=== PATIENT | male | born 1970 | race Caucasian/White ===

== ENCOUNTER 2018-04-30 09:28 | Emergency (ER) | payer OTHER, MEDICAID, SELFPAY ==
[2018-04-30 09:40] VITALS: BP 138/90; PULSE 90; RESP 18; TEMP 36.7; O2SAT 96; BMI 25.0
--- NOTE | 2018-04-30 09:50 | ED_ITS ---
HPI - URI/Sore Throat General Chief Complaint: Upper Respiratory Symptoms Stated Complaint: headache, hurts to swallow Time Seen by Provider: 04/30/18 09:39 Source: patient Mode of arrival: ambulatory Limitations: no limitations History of Present Illness HPI Narrative: Patient is a 47-year-old male here for evaluation of right upper mouth pain, right hoahaoism pain, right-sided headache, right-sided neck pain. Patient states that he thinks he may have an infected tooth causing a sinus infection. He also states that he ?jab ?a toothpick in the front of his upper gum at some point over the past couple days. Patient states that he has not been to the dentist to have this evaluated. Denies any cough. Denies any fevers. Took an aspirin last night for the pain and states that it did not help. No neck pain. Related Data Home Medications Medication Instructions Recorded Confirmed ibuprofen 600 mg PO TID #0 12/30/16 04/30/18 Previous Rx's Medication Instructions Recorded clindamycin HCl 300 mg PO QID 10 Days #40 cap 04/30/18 hydrocodone-acetaminophen 1 tab PO Q6H PRN #6 tab 04/30/18 Allergies Allergy/AdvReac Type Severity Reaction Status Date / Time Penicillins Allergy Mild HEAD Verified 04/30/18 09:37 ITCH-FEELS LIKE LICE vancomycin Allergy Mild ITCH Unverified 01/25/18 13:08 adhesive Allergy Unknown PAPER [place] Unverified 01/25/18 13:08 morphine AdvReac Mild DREAMS, Unverified 01/25/18 13:08 COMBATIVE Review of Systems Constitutional Denies fatigue, Denies fever(s) and Reports headache(s) (Right-sided) Eyes Denies blurry vision, Denies change in vision, Denies diplopia, Denies eye discharge, Denies dry eyes and Denies itchy eyes ENT Ears, Nose, Mouth, and Throat: Denies dysphagia, Denies vertigo, Denies dizziness, Denies ear discharge, Reports facial pain (Right-sided), Reports headache(s) (Right-sided), Denies hearing loss, Denies hoarseness, Denies nasal congestion, Denies nasal trauma, Denies tinnitus, Reports sinus pain (Right- sided), Reports sinus pressure (Right-sided), Reports sore throat and Denies tongue swelling Cardiovascular Denies chest pain, Denies syncope and Denies dyspnea Respiratory Denies cough and Denies dyspnea Gastrointestinal Gastrointestinal: Denies dysphagia, Denies nausea and Denies vomiting Integumentary/Breasts Denies lesions and Denies rash Neurologic Denies confusion, Denies vertigo, Denies dizziness, Denies syncope and Reports headache(s) (Right-sided) Psychiatric Denies confusion Endocrine Denies fatigue Hematologic/Lymphatic Denies easy bleeding and Denies easy bruising Allergic/Immunologic Denies itchy eyes and Denies tongue swelling [facility] Social History Smoking Status: Current every day smoker Exam Initial Vital Signs Initial Vital Signs: Vital Signs Temperature 98.1 F 04/30/18 09:40 Pulse Rate 90 04/30/18 09:40 Respiratory Rate 18 04/30/18 09:40 Blood Pressure 138/90 H 04/30/18 09:40 Pulse Oximetry 96 04/30/18 09:40 Const General: cooperative, well developed, well groomed and No acute distress Orientation: alert, awake and oriented x3 HENMT Head: normal to inspection, normocephalic and atraumatic Ears: hearing grossly normal bilaterally and TM's normal bilaterally (Right TM bulgingLeft TM unremarkable) Nose: external nose normal, nares normal, nasal mucous membranes and turbinates normal and septum normal Face and sinus: sinuses tender (Right-sided frontal maxillary sinus tenderness to palpation), face symmetric and no ecchymosis Mouth: oral mucosae normal, tongue normal, oropharynx normal and moist mucous membranes Teeth and gingiva: other (Patient with a cracked tooth 15. With a filling in place multiple fillings in place on the bottom left lower patient with missing tooth 31) Throat: uvula midline, no postnasal drainage, uvula not displaced and no uvular edema Eyes Pupils: PERRL Neck Lymphatic: lymphadenopathy (Right anterior cervical and submandibular) Resp Effort & Inspection: normal respiratory effort Skin Lesions: no lesions Rashes: no rashes Neuro General: alert, awake and oriented x3 Cognition: normal cognition Speech: speech normal Extrem General: normal to inspection and capillary refill normal Psych Appearance: grossly normal and well kempt Course Orders Ordered: Discontinued Medications Hydrocodone Bitart/Acetaminophen ([place] 5/325) 1 tab PO NOW ONE Stop: 04/30/18 09:51 Vital Signs - 8 hr 04/30/18 09:40 Temperature 98.1 F Pulse Rate 90 Respiratory Rate 18 Blood Pressure 138/90 H Pulse Oximetry 96 MDM - URI/Sore Throat MDM Narrative Medical decision making narrative: Patient with right-sided facial pain with right-sided lymphadenopathy. Differential diagnosis includes dental abscess however none is seen on exam today. Exam could also be consistent with pharyngitis. Patient does not have any exudate but does have right-sided lymphadenopathy. Symptoms could also be consistent with sinusitis, viral illness. His headache is not consistent with meningitis. Not consistent with subarachnoid hemorrhage as it was gradual onset. Had a discussion with the patient regarding his symptoms. Given the uncertain etiology which could include a dental abscess which is not visualized will start the patient on antibiotics. He is allergic to penicillin. Also treat his headache. Patient was instructed that he needed to call his dentist tomorrow for a follow-up. He was given return precautions. He expressed understanding and agreement with plan. Discharge Plan Departure Patient Disposition: Home, Self-Care Clinical Impression: Headache, Otitis media, Lymphadenopathy, Pain, dental Instructions: DI for Headache, DI for Dental Pain Activity Restrictions/Additional Instructions: Take the antibiotics as directed. Would highly recommend that you contact dentist tomorrow to have a follow-up to get further evaluation. Return to the emergency department for any new or worsening symptoms Prescriptions: New clindamycin HCl 300 mg capsule 300 mg PO QID 10 Days Qty: 40 RF: 0 hydrocodone-acetaminophen 5-325 mg tablet 1 tab PO Q6H PRN (Reason: pain) Qty: 6 RF: 0 No Action ibuprofen 600 MG tablet 600 mg PO TID Qty: 0 RF: 0
[2018-04-30] MEDS: HYDROCODONE/ACET 5/325 TABLET 1 TAB PO (10:01)
[2018-04-30 10:16] VITALS: BP 142/93; PULSE 88; RESP 15; O2SAT 99
== END 2018-04-30 10:18 | disposition home or self-care (01) ==
PROVIDERS: Emergency Provider Emergency Medicine; Family Provider Family Medicine; PCP Family Medicine
DX: H66.90 Otitis media, unspecified, unspecified ear (principal); K08.89 Other specified disorders of teeth and supporting structures; R59.1 Generalized enlarged lymph nodes; R51 Headache
CPT/HCPCS: 99283

== ENCOUNTER 2018-06-02 18:17 | Emergency (ER) | payer OTHER, MEDICAID, SELFPAY ==
[2018-06-02 18:36] VITALS: BP 142/93; PULSE 82; RESP 16; TEMP 36.8; O2SAT 100; BMI 26.4
--- NOTE | 2018-06-02 18:36 | ED.DENTAL ---
HPI - Dental/Oral <ANTIONETTE Tracy - Last Filed: 06/02/18 22:26> General Chief complaint: Dental/Oral Stated complaint: UNABLE TO EAT WELL SWELLING OF GLANDS TOOTH ACHE Time Seen by Provider: 06/02/18 18:29 History of Present Illness HPI Narrative: 47-year-old male here for complaint of pain into his right lower molars over the past month. He reports that he was seen 1 month ago and was placed on clindamycin. He states that the pain got better after the clindamycin however in now is back. He reports he does have an appointment with his dentist next week to repair a cracked tooth. He states that increased pain with eating due to chewing. He denies any purulent drainage. No fevers no chills. He denies any other concerns or complaints. He denies any trauma to the teeth. MD Complaint: tooth pain Related Data Home Medications Medication Instructions Recorded Confirmed ibuprofen 600 mg PO TID #0 12/30/16 04/30/18 Previous Rx's Medication Instructions Recorded hydrocodone-acetaminophen 1 tab PO Q6H PRN #6 tab 04/30/18 clindamycin HCl 300 mg PO TID #21 cap 06/02/18 hydrocodone-acetaminophen [[place]] 1 tab PO Q4-6H PRN #10 tab 06/02/18 Allergies Allergy/AdvReac Type Severity Reaction Status Date / Time Penicillins Allergy Mild HEAD Verified 04/30/18 09:37 ITCH-FEELS LIKE LICE vancomycin Allergy Mild ITCH Unverified 01/25/18 13:08 adhesive Allergy Unknown PAPER [place] Unverified 01/25/18 13:08 morphine AdvReac Mild DREAMS, Unverified 01/25/18 13:08 COMBATIVE Review of Systems <ANTIONETTE Tracy - Last Filed: 06/02/18 22:26> Eyes Denies change in vision, Denies eye discharge, Denies irritation and Denies loss of vision ENT Ears, Nose, Mouth, and Throat: Reports mouth pain Cardiovascular Denies chest pain, Denies irregular heart rhythm, Denies lightheadedness, Denies palpitations, Denies dyspnea, Denies dyspnea on exertion and Denies orthopnea Respiratory Denies cough, Denies dyspnea, Denies dyspnea on exertion and Denies wheezing Gastrointestinal Gastrointestinal: Denies abdominal pain, Denies change in bowel habits, Denies diarrhea, Denies nausea and Denies vomiting Genitourinary Denies hematuria, Denies flank pain, Denies urinary incontinence and Denies urinary urgency Musculoskeletal Denies back pain, Denies muscle weakness, Denies numbness and Denies tingling Integumentary/Breasts Denies pruritus, Denies erythema, Denies rash and Denies wounds Neurologic Denies confusion, Denies loss of vision, Denies numbness and Denies tingling Psychiatric Denies anxiety, Denies confusion, Denies depression, Denies homicidal ideation and Denies suicidal ideation Endocrine Denies palpitations Hematologic/Lymphatic Denies easy bruising Allergic/Immunologic Denies wheezing Exam <ANTIONETTE Tracy - Last Filed: 06/02/18 22:26> Initial Vital Signs Initial Vital Signs: Vital Signs Temperature 98.2 F 06/02/18 18:36 Pulse Rate 82 06/02/18 18:36 Respiratory Rate 16 06/02/18 18:36 Blood Pressure 142/93 H 06/02/18 18:36 Pulse Oximetry 100 06/02/18 18:36 Const General: cooperative and well developed Nutritional Appearance: well nourished Orientation: alert, awake, oriented x3 and not confused HENMT Ears: external ears normal and TM's normal bilaterally Nose: external nose normal and No nasal discharge Face and sinus: sinuses nontender, face symmetric, no sinus tenderness and No dry mucous membranes Mouth: oral mucosae normal and moist mucous membranes Teeth and gingiva: caries and other (Tenderness to the gums along side molars 29 and 30 no fluctuance no induration) Throat: tonsils normal and uvula midline Eyes Conjunctivae: conjunctivae normal Sclera: sclerae normal Pupils: PERRL EOM: EOM intact bilaterally Resp Effort & Inspection: normal respiratory effort, able to speak in complete sentences, no respiratory distress and no use of accessory muscles Auscultation: clear to auscultation bilaterally, no rales, no rhonchi and no wheezes Cardio Rate: regular rate Rhythm: regular rhythm Heart Sounds: no click, no gallops, no murmurs and no rubs Neuro General: alert, oriented x3, gait normal and no focal motor deficits Speech: speech normal <Iban Cobian DO - Last Filed: 06/03/18 02:11> Initial Vital Signs Initial Vital Signs: Vital Signs Temperature 98.2 F 06/02/18 18:36 Pulse Rate 82 06/02/18 18:36 Respiratory Rate 16 06/02/18 18:36 Blood Pressure 142/93 H 06/02/18 18:36 Pulse Oximetry 100 06/02/18 18:36 Course <ANTIONETTE Tracy - Last Filed: 06/02/18 22:26> Orders Ordered: Discontinued Medications Hydrocodone Bitart/Acetaminophen ([place] 5/325) 2 tab PO NOW ONE Stop: 06/02/18 19:34 Last Admin: 06/02/18 19:53 Dose: 2 tab Vital Signs - 8 hr 06/02/18 18:36 Temperature 98.2 F Pulse Rate 82 Respiratory Rate 16 Blood Pressure 142/93 H Pulse Oximetry 100 <Iban Cobian DO - Last Filed: 06/03/18 02:11> Orders Ordered: Discontinued Medications Hydrocodone Bitart/Acetaminophen ([place] 5/325) 2 tab PO NOW ONE Stop: 06/02/18 19:34 Last Admin: 06/02/18 19:53 Dose: 2 tab Vital Signs - 8 hr 06/02/18 18:36 Temperature 98.2 F Pulse Rate 82 Respiratory Rate 16 Blood Pressure 142/93 H Pulse Oximetry 100 MDM - Dental/Oral <ANTIONETTE Tracy - Last Filed: 06/02/18 22:26> MDM Narrative Medical decision making narrative: Signs and symptoms presents as return of a dental infection with starting abscess although not palpable at this time he is placed on clindamycin. [id number] Tylenol or Motrin as needed for any discomfort. Small amount of [place] is prescribed for breakthrough pain. Follow up with dentist next week as scheduled. For any worsening symptoms return to the emergency room. Discharge Plan Departure Patient Disposition: Home Clinical Impression: Dental abscess Discharge Date/Time: 06/02/18 20:15 Interventions: ED Discharge Assessment Last Done: 06/02/18 20:14 Instructions: Tooth Abscess Activity Restrictions/Additional Instructions: Signs and symptoms presents as return of dental infection. You are placed on antibiotic called clindamycin use as directed. Use [id number] Tylenol Motrin as needed for any discomfort. Small amount of [place] is prescribed for breakthrough pain use as directed no driving while on the [place]. Follow up with dentist next week as scheduled. For any worsening symptoms return emergency room. Prescriptions: New clindamycin HCl 300 mg capsule 300 mg PO TID Qty: 21 RF: 0 hydrocodone-acetaminophen [[place]] 5-325 mg tablet 1 tab PO Q4-6H PRN (Reason: pain) Qty: 10 RF: 0 No Action ibuprofen 600 MG tablet 600 mg PO TID Qty: 0 RF: 0 hydrocodone-acetaminophen 5-325 mg tablet 1 tab PO Q6H PRN (Reason: pain) Qty: 6 RF: 0 Referrals: Dago Rae MD [Primary Care Provider] - <Iban Cobian DO - Last Filed: 06/03/18 02:11> [facility] ED Attending Amy Attestation: I was available for consultation during this patient's emergency department encounter
[2018-06-02] MEDS: HYDROCODONE/ACET 5/325 TABLET 2 TAB PO (19:53)
== END 2018-06-02 20:15 | disposition home or self-care (01) ==
PROVIDERS: Emergency Provider Nurse Practitioner Family; Family Provider Family Medicine; PCP Family Medicine
DX: K04.7 Periapical abscess without sinus (principal)
CPT/HCPCS: 99282; 99283

== ENCOUNTER 2018-08-28 11:31 | Emergency (ER) | payer OTHER, MEDICAID, SELFPAY ==
[2018-08-28 11:38] VITALS: BP 148/92; PULSE 90; RESP 14; TEMP 36.2; O2SAT 100
--- NOTE | 2018-08-28 12:04 | ED.SKABFB ---
HPI - Skin/Abscess/Foreign Bdy <ETIENNE Damon Last Filed: 08/28/18 18:39> General Chief complaint: Skin/Abscess/Foreign Body Stated complaint: infection on elbow,knee,under arm Time Seen by Provider: 08/28/18 12:03 Source: patient Mode of arrival: ambulatory Limitations: no limitations History of Present Illness HPI narrative: This 47-year-old male comes in due to multiple areas of red skin for over a month. He states that he had a spot 1st on his left hand near the pinky that looks like a little blister or pustule and got red, also 1 on the right knee. He also has 1 on the right elbow that has been scabbed over and a bit red. He states these looked like ingrown hairs. He states that is most concerned about an increasingly red, tender area in the left axilla, also has 1 below the left ear where he can feel a bump. He states the lesions that he had earlier did seem to come to a head and drain some pus. These new lesions have been getting more tender over the last several days and he is concerned that antibiotics are needed. He denies any fever or other new c/o. He denies any exposures or IV drug use. Related Data Home Medications Medication Instructions Recorded Confirmed ibuprofen 600 mg PO TID PRN #0 12/30/16 08/28/18 Previous Rx's Medication Instructions Recorded clindamycin HCl 300 mg PO Q6H 7 Days #28 cap 08/28/18 ibuprofen 800 mg PO Q8H PRN #30 tab 08/28/18 Allergies Allergy/AdvReac Type Severity Reaction Status Date / Time Penicillins Allergy Mild HEAD Verified 08/28/18 11:41 ITCH-FEELS LIKE LICE vancomycin Allergy Mild ITCH Verified 08/28/18 11:41 adhesive Allergy Unknown PAPER [place] Verified 08/28/18 11:41 morphine AdvReac Mild DREAMS, Verified 08/28/18 11:41 COMBATIVE Review of Systems <ETIENNE Damon Last Filed: 08/28/18 18:39> Review of Systems All systems reviewed & are unremarkable except as noted in HPI and below PFSH <ETIENNE Damon Last Filed: 08/28/18 18:39> Comment: + ETOH Exam <ETIENNE Damon Last Filed: 08/28/18 18:39> Narrative Exam Narrative: GENERAL APPEARANCE: Patient sitting comfortably, in no distress (sleeping initially). NECK: Supple, shotty anterior nodes LUNGS: Clear to auscultation bilaterally. HEART: Rate and rhythm regular without murmur, normal S1 and S2, no S3 or S4. DERMATOLOGIC: There is a scabbed area on the right elbow, dry, with mild erythema surrounding. There is a smaller, similar lesion on the left knee. There is a tender, indurated area in the left axilla, no fluctuance, with surrounding, slightly warm erythema that is irregular, to about 4 cm. It does look like there is a tiny pustule near hair follicle of the proximal border of the erythema. There is a tender lateral neck nodule inferior to the left ear Initial Vital Signs Initial Vital Signs: Vital Signs Temperature 97.1 F L 08/28/18 11:38 Pulse Rate 90 08/28/18 11:38 Respiratory Rate 14 08/28/18 11:38 Blood Pressure 148/92 H 08/28/18 11:38 Pulse Oximetry 100 08/28/18 11:38 <Amrit Ng DO - Last Filed: 08/28/18 20:23> Initial Vital Signs Initial Vital Signs: Vital Signs Temperature 97.1 F L 08/28/18 11:38 Pulse Rate 90 08/28/18 11:38 Respiratory Rate 14 08/28/18 11:38 Blood Pressure 148/92 H 08/28/18 11:38 Pulse Oximetry 100 08/28/18 11:38 Course <Hien Ojeda PA-C - Last Filed: 08/28/18 18:39> Vital Signs - 8 hr 08/28/18 13:12 Pulse Rate 70 Respiratory Rate 14 Blood Pressure [Left Arm] 131/72 Pulse Oximetry 99 <Amrit Ng DO - Last Filed: 08/28/18 20:23> Vital Signs - 8 hr 08/28/18 13:12 Pulse Rate 70 Respiratory Rate 14 Blood Pressure [Left Arm] 131/72 Pulse Oximetry 99 Discharge Plan Departure Patient Disposition: Home Clinical Impression: Cellulitis and abscess of trunk Discharge Date/Time: 08/28/18 13:13 Interventions: ED Discharge Assessment Last Done: 08/28/18 13:12 Instructions: DI for Cellulitis -- Adult Activity Restrictions/Additional Instructions: Please return as we talked about if you have acutely worsening symptoms such as increased pain and swelling or rapidly spreading redness, or new fever. It will take about 72 hr for the antibiotic to become fully effective, so please monitor closely. Take the 1st dose as soon as you pick it up, and take it about every 6 hr (you do not need to wake up to take it). Use hot packs to these areas as often as possible as this may help bring the spots to a head or drain (they do not appear to need incision and drainage today). I have sent in a prescription strength ibuprofen for you to take for pain and swelling. I spoke with the military source operations officer at Dr. Rae's office and they do not take [facility] so we were not able to schedule a follow-up appointment for you there. If your insurance has changed from this, please call them regarding an appointment. If not, please call your insurance today and let them know you need to be seen for follow-up in 3-4 days by a local provider who takes your insurance, or you can follow up at walk-in clinic as well. Prescriptions: New clindamycin HCl 300 mg capsule 300 mg PO Q6H 7 Days Qty: 28 RF: 0 ibuprofen 800 mg tablet 800 mg PO Q8H PRN (Reason: pain/inflammation) Qty: 30 RF: 0 No Action ibuprofen 600 MG tablet 600 mg PO TID PRN (Reason: Back Pain) Qty: 0 RF: 0 Referrals: Dago Rae MD [Primary Care Provider] - <Amrit Ng DO - Last Filed: 08/28/18 20:23> [facility] Attending Amy Attestation: I was immediately available in the department for consultation. Documentation has been reviewed. I agree with assessment and plan.
--- NOTE | 2018-08-28 12:19 | PC.NURSE ---
#1: Left axilla w/ redness and pain upon palpation. #2: Right elbow w/ old scab and redness, pain upon palpation. No localized fluctuation. #3: Right knee, redness and pain upon palpation.
[2018-08-28 13:12] VITALS: BP 131/72; PULSE 70; RESP 14; O2SAT 99
== END 2018-08-28 13:13 | disposition home or self-care (01) ==
PROVIDERS: Emergency Provider Internal Medicine; PCP Family Medicine
DX: L03.319 Cellulitis of trunk, unspecified (principal); L02.219 Cutaneous abscess of trunk, unspecified
CPT/HCPCS: 99282

== ENCOUNTER 2018-08-29 13:15 | Emergency (ER) | payer OTHER, MEDICAID, SELFPAY ==
[2018-08-29 13:22] VITALS: BP 142/91; PULSE 102; RESP 20; TEMP 36.7; O2SAT 94; BMI 25.7
[2018-08-29 14:50] VITALS: BP 116/63; PULSE 81; RESP 14; TEMP 36.6; O2SAT 99
--- NOTE | 2018-08-29 20:50 | ED_ITS ---
HPI - Skin/Abscess/Foreign Bdy <ANYI Clancy-BC - Last Filed: 08/29/18 20:50> General Chief complaint: Skin/Abscess/Foreign Body Stated complaint: abcess on left arm Time Seen by Provider: 08/29/18 13:31 Source: patient Mode of arrival: ambulatory Limitations: no limitations History of Present Illness HPI narrative: Patient presents after starting antibiotics for cellulitis yesterday with worsening pain. He states he has had 4 doses of clindamycin. He has been taking ibuprofen, but no Tylenol for the pain. He was noted to have cellulitis in his left axilla, as well as a spot on his left hand his 5th digit and a spot on his left knee yesterday. He denies any current nausea vomiting or diarrhea. He denies fever. He states he is eating well. He comes back as he states that the pain in his axilla is worse. Related Data Previous Rx's Medication Instructions Recorded clindamycin HCl 300 mg PO Q6H 7 Days #28 cap 08/28/18 ibuprofen 800 mg PO Q8H PRN #30 tab 08/28/18 Allergies Allergy/AdvReac Type Severity Reaction Status Date / Time Penicillins Allergy Mild HEAD Verified 08/29/18 13:27 ITCH-FEELS LIKE LICE vancomycin Allergy Mild ITCH Verified 08/29/18 13:27 adhesive Allergy Unknown PAPER OK Verified 08/29/18 13:27 morphine AdvReac Mild DREAMS, Verified 08/29/18 13:27 COMBATIVE Review of Systems <ANYI Clancy- - Last Filed: 08/29/18 20:50> Review of Systems GENERAL: See HPI HEENT: Denies sinus pain, ear pain, sore throat, difficulty swallowing, dizziness. RESPIRATORY: Denies dyspnea, cough, wheezing, hemoptysis, sputum. CARDIOVASCULAR: Denies chest pain, palpitations, orthopnea, edema, GASTROINTESTINAL: Denies nausea, vomiting, abdominal pain, diarrhea, constipation, melena. : Denies dysuria, frequency, incontinence, hematuria, urinary retention. MUSCULOSKELETAL: denies weakness, joint pain, or bony pain SKIN: See HPI NEUROLOGIC: Denies weakness, headache, numbness, change in speech, confusion, seizures, incoordination. PSYCHIATRIC: No concerning psychosocial issues. 12 point review of systems is negative except for those stated above Exam <PATRICE Clancy - Last Filed: 08/29/18 20:50> Narrative Exam Narrative: GENERAL: This is a well-nourished, well-developed patient, sleeping upon initial evaluation HEAD: Atraumatic. Normocephalic. No temporal or scalp tenderness. EYES: Pupils equal round and reactive. Extraocular motions intact. No scleral icterus. No injection or drainage. ENT: Nose without bleeding, purulent drainage or septal hematoma. Throat without erythema, tonsillar hypertrophy or exudate. Uvula midline. Airway patent. NECK: Trachea midline. No JVD. Shotty nodes anterior chain left side. . Supple , nontender, no meningeal signs. CARDIOVASCULAR: Regular rate and rhythm without murmurs, gallops, or rubs. RESPIRATORY: Clear to auscultation. Breath sounds equal bilaterally. No wheezes , rales, or rhonchi. GASTROINTESTINAL: Abdomen soft, non-tender, nondistended. No hepato-splenomegaly , or palpable masses. No guarding. EXTREMITIES: No clubbing, cyanosis, or edema. No joint tenderness, effusion, or edema noted. BACK: Nontender without deformity or crepitance. No flank tenderness. NEURO: AOx3. SKIN: Abrasion two cm noted right elbow that is dry with no exudate and surrounding erythema 0.5 cm around. 2 cm area of erythema noted left knee. Tender area of erythema left axilla about 3 cm. No palpable fluctuance. Area is well within margins of marker drawn yesterday. Initial Vital Signs Initial Vital Signs: Vital Signs Temperature 98.0 F 08/29/18 13:22 Pulse Rate 102 H 08/29/18 13:22 Respiratory Rate 20 08/29/18 13:22 Blood Pressure 142/91 H 08/29/18 13:22 Pulse Oximetry 94 08/29/18 13:22 <Khadijah Lara DO - Last Filed: 08/30/18 08:04> Initial Vital Signs Initial Vital Signs: Vital Signs Temperature 98.0 F 08/29/18 13:22 Pulse Rate 102 H 08/29/18 13:22 Respiratory Rate 20 08/29/18 13:22 Blood Pressure 142/91 H 08/29/18 13:22 Pulse Oximetry 94 08/29/18 13:22 Course <PATRICE Clancy - Last Filed: 08/29/18 20:50> Vital Signs - 8 hr 08/29/18 13:22 08/29/18 14:50 Temperature 98.0 F 97.9 F Pulse Rate 102 H 81 Respiratory Rate 20 14 Blood Pressure 142/91 H Blood Pressure [Left Arm] 116/63 Pulse Oximetry 94 99 <Khadijah Lara DO - Last Filed: 08/30/18 08:04> Vital Signs - 8 hr 08/29/18 13:22 08/29/18 14:50 Temperature 98.0 F 97.9 F Pulse Rate 102 H 81 Respiratory Rate 20 14 Blood Pressure 142/91 H Blood Pressure [Left Arm] 116/63 Pulse Oximetry 94 99 MDM - Skin/Abscess/Foreign Bdy <PATRICE Clancy - Last Filed: 08/29/18 20:50> MDM Narrative Medical decision making narrative: Patient presented initially for feeling worse after starting antibiotics yesterday. He was hemodynamically stable and afebrile. Given his increased pain, I discussed doing lab work as well as a incision and drainage in his left axilla. However he declined further workup, procedure or lab work stating that he felt better after some rest in the emergency department. I discussed at length monitoring for worsening including fever, inability keep down fluids or other acute concerns. Patient stated understanding and has no questions or concerns upon discharge. Discharge Plan Departure Patient Disposition: Home Clinical Impression: Cellulitis and abscess of trunk Discharge Date/Time: 08/29/18 14:57 Interventions: ED Discharge Assessment Last Done: 08/29/18 14:57 Instructions: DI for Cellulitis -- Adult Activity Restrictions/Additional Instructions: Please continue to take the ibuprofen, Tylenol and antibiotics as provided yesterday. Please monitor for fever, nausea vomiting and diarrhea. Please be evaluated if any of these occur as these are signs that you are getting sicker and need further workup that you declined today. Prescriptions: No Action clindamycin HCl 300 mg capsule 300 mg PO Q6H 7 Days Qty: 28 RF: 0 ibuprofen 800 mg tablet 800 mg PO Q8H PRN (Reason: pain/inflammation) Qty: 30 RF: 0 Referrals: Dago Rae MD [Primary Care Provider] - <Khadijah Lara DO - Last Filed: 08/30/18 08:04> Cosign ED Attending Cosignature Attestation: I was immediately available in the department for consultation. Documentation has been reviewed. I agree with assessment and plan.
== END 2018-08-29 14:57 | disposition home or self-care (01) ==
PROVIDERS: Emergency Provider Nurse Practitioner Family; PCP Family Medicine
DX: L03.319 Cellulitis of trunk, unspecified (principal); L02.219 Cutaneous abscess of trunk, unspecified
CPT/HCPCS: 99282

== ENCOUNTER 2018-08-30 20:07 | Emergency (ER) | payer OTHER, MEDICAID, SELFPAY ==
[2018-08-30 20:14] VITALS: BP 150/98; PULSE 95; RESP 20; TEMP 37; O2SAT 100
[2018-08-30] MEDS: HYDROCODONE/ACET 5/325 TABLET 1 TAB PO (21:08)
--- NOTE | 2018-08-30 21:12 | ED_ITS ---
HPI - Skin/Abscess/Foreign Bdy <ANTIONETTE Cornejo - Last Filed: 08/30/18 21:17> General Chief complaint: Skin/Abscess/Foreign Body Stated complaint: STATES CYST UNDER LT ARM Time Seen by Provider: 08/30/18 20:49 Source: patient Mode of arrival: ambulatory Limitations: no limitations History of Present Illness HPI narrative: abscess to L armpit, says this is his 3rd visit to er in 3 days, and he came in because it hurts, says he is taking abx, but doesn't know the name of them, and motrin, but motrin is not helping the pain MD complaint: abscess/boil Onset (ago): week(s) (1) Location: LUE (L armpit) Pain Consistency: constant Relieving factors: none Exacerbating factors: palpation and movement Context: recent antibiotic Associated symptoms: denies other symptoms Treatments prior to arrival: antibiotic Related Data Previous Rx's Medication Instructions Recorded clindamycin HCl 300 mg PO Q6H 7 Days #28 cap 08/28/18 ibuprofen 800 mg PO Q8H PRN #30 tab 08/28/18 ondansetron 4 mg PO Q8-12H PRN #14 tab 08/30/18 sulfamethoxazole-trimethoprim 1 tab PO BID #20 tab 08/30/18 [Bactrim DS] Allergies Allergy/AdvReac Type Severity Reaction Status Date / Time Penicillins Allergy Mild HEAD Verified 08/29/18 13:27 ITCH-FEELS LIKE LICE vancomycin Allergy Mild ITCH Verified 08/29/18 13:27 adhesive Allergy Unknown PAPER OK Verified 08/29/18 13:27 morphine AdvReac Mild DREAMS, Verified 08/29/18 13:27 COMBATIVE Review of Systems <ANTIONETTE Cornejo - Last Filed: 08/30/18 21:17> Review of Systems All systems reviewed & are unremarkable except as noted in HPI and below Constitutional Reports as per HPI and Reports system reviewed and no additional complaints, except as docu Musculoskeletal Reports as per HPI, Reports abnormal gait, Denies deformity, Reports limited range of motion, Denies muscle weakness and Denies numbness Integumentary/Breasts Reports as per HPI, Reports erythema, Reports skin pain, Reports skin ulcer, Denies unusual bruising and Denies wounds Neurologic Reports abnormal gait and Denies numbness Exam <Teodora Ovalles LEGAL RESEARCH ANALYST - Last Filed: 08/30/18 21:17> Initial Vital Signs Initial Vital Signs: Vital Signs Temperature 98.6 F 08/30/18 20:14 Pulse Rate 95 H 08/30/18 20:14 Respiratory Rate 20 08/30/18 20:14 Blood Pressure 150/98 H 08/30/18 20:14 Pulse Oximetry 100 08/30/18 20:14 Const General: cooperative, healthy appearing, comfortable, well developed and well groomed Orientation: alert, awake and oriented x3 HENMT Head: normal to inspection and normocephalic Ears: hearing grossly normal bilaterally Nose: external nose normal Face and sinus: normal facial exam Eyes General: appearance normal, both eyes and all related structures Visual Levin: normal visual levin by confrontation Eyelids: eyelids normal Pupils: PERRL Neck Neck: normal visual inspection, full ROM and trachea midline Resp Effort & Inspection: normal respiratory effort and able to speak in complete sentences Back/Spine/Pelvis Back: normal to inspection Cervical Spine: cervical ROM normal Thoracic/Lumbar Spine: thoraco-lumbar ROM normal Skin General: no rashes or lesions noted, elasticity normal, turgor normal and erythema Lesions: lesion noted (open draining yellow thick pus abscess noted to L axilla abscess opening approx 1cm, and pt would not let me even touch it or attempt to excise more pus out, surrounding erythema approx 2cm x 4cm) Rashes: no rashes Neuro General: alert, awake and oriented x3 Cranial Nerves: CN's II-XI intact bilaterally Cognition: normal cognition Speech: speech normal Motor: muscle tone normal throughout Sensory Exam: no sensory deficits noted Extrem General: normal to inspection, full ROM, capillary refill normal and limp Right upper extremity: normal to inspection and full ROM Left upper extremity: normal to inspection and full ROM Right lower extremity: normal to inspection and full ROM Left lower extremity: normal to inspection and full ROM Psych Appearance: grossly normal and well kempt Mental Status: mental status grossly normal Speech and Movement: agitated Mood: anxious mood and irritable mood Affect: normal affect Attitude: guarded Thought Process: normal Thought Content: normal Judgment: judgment good <Iban Cobian DO - Last Filed: 08/30/18 23:52> Initial Vital Signs Initial Vital Signs: Vital Signs Temperature 98.6 F 08/30/18 20:14 Pulse Rate 95 H 08/30/18 20:14 Respiratory Rate 20 08/30/18 20:14 Blood Pressure 150/98 H 08/30/18 20:14 Pulse Oximetry 100 08/30/18 20:14 Course <ANTIONETTE Cornejo - Last Filed: 08/30/18 21:17> Orders Ordered: ED Orders 08/30/18 22:00 Wound Culture and Gram Stain Stat Discontinued Medications Hydrocodone Bitart/Acetaminophen (Agar 5/325) 1 tab PO NOW ONE Stop: 08/30/18 21:00 Last Admin: 08/30/18 21:08 Dose: 1 tab Vital Signs - 8 hr 08/30/18 20:14 08/30/18 22:18 Temperature 98.6 F Pulse Rate 95 H 93 H Respiratory Rate 20 19 Blood Pressure 150/98 H 128/76 Pulse Oximetry 100 98 <Iban Cobian DO - Last Filed: 08/30/18 23:52> Orders Ordered: ED Orders 08/30/18 22:00 Wound Culture and Gram Stain Stat Discontinued Medications Hydrocodone Bitart/Acetaminophen (Agar 5/325) 1 tab PO NOW ONE Stop: 08/30/18 21:00 Last Admin: 08/30/18 21:08 Dose: 1 tab Vital Signs - 8 hr 08/30/18 20:14 08/30/18 22:18 Temperature 98.6 F Pulse Rate 95 H 93 H Respiratory Rate 20 19 Blood Pressure 150/98 H 128/76 Pulse Oximetry 100 98 MDM - Skin/Abscess/Foreign Bdy <ANTIONETTE Cornejo - Last Filed: 08/30/18 21:17> Differential Diagnosis Likely abscess of skin or subcutaneous tissue, cellulitis, insect bites and other (substance abuse, folliculitis) Discharge Plan Departure Patient Disposition: Home Clinical Impression: Abscess Discharge Date/Time: 08/30/18 22:20 Interventions: ED Discharge Assessment Last Done: 08/30/18 22:18 Instructions: DI for Skin Abscess Activity Restrictions/Additional Instructions: wound needs to be washed and irrigated several times a day Prescriptions: New ondansetron 4 mg tablet,disintegrating 4 mg PO Q8-12H PRN (Reason: nausea and vomiting) Qty: 14 RF: 0 sulfamethoxazole-trimethoprim [Bactrim DS] 800-160 mg tablet 1 tab PO BID Qty: 20 RF: 0 No Action clindamycin HCl 300 mg capsule 300 mg PO Q6H 7 Days Qty: 28 RF: 0 ibuprofen 800 mg tablet 800 mg PO Q8H PRN (Reason: pain/inflammation) Qty: 30 RF: 0 Referrals: Dago Rae MD [Primary Care Provider] - (follow up in 2 days for wound recheck) <Iban Cobian DO - Last Filed: 08/30/18 23:52> Cosign ED Attending Amy Attestation: I was available for consultation during this patient's emergency department encounter
[2018-08-30 22:18] VITALS: BP 128/76; PULSE 93; RESP 19; O2SAT 98
== END 2018-08-30 22:20 | disposition home or self-care (01) ==
PROVIDERS: Emergency Provider Nurse Practitioner; Family Provider Family Medicine; PCP Family Medicine
DX: L02.414 Cutaneous abscess of left upper limb (principal)
CPT/HCPCS: 87070; 87075; 87077; 87147; 87186; 87205; 99283

== ENCOUNTER 2020-10-12 19:45 | Emergency (ER) | payer OTHER, MEDICAID, SELFPAY ==
[2020-10-12] VITALS (9 sets, daily range): BP systolic 164–199; BP diastolic 86–107; PULSE 74–92; RESP 18–32; TEMP 37.2; O2SAT 98–100
[2020-10-12] MEDS: ONDANSETRON 4 MG ODT SL (20:00)
--- NOTE | 2020-10-12 20:14 | ED_ITS ---
HPI - Allergic Reaction General Chief complaint: Allergic Reaction Stated complaint: states allergic reaction Time Seen by Provider: 10/12/20 20:07 Source: patient Mode of arrival: Ambulatory History of Present Illness HPI narrative: 49-year-old gentleman with erectile dysfunction had taken an herbal supplement (rhino 6000) containing zinc, ?proprietary blend?, oryza sativa, goat weed, willow bark,rauvolifa, and developed significant nausea, vomiting, dilated pupils, increased salivation, diaphoresis, headache and agitation. He describes no specific chest pain or dyspnea. Has noted an occasional palpitation. No abdominal pain. He has not taken this particular supplement previously has used prescription erectile dysfunction medications and has not had adverse effects. Related Data Previous Rx's Medication Instructions Recorded ibuprofen 800 mg PO Q8H PRN #30 tab 08/28/18 ondansetron 4 mg PO Q8-12H PRN #14 tab 08/30/18 sulfamethoxazole-trimethoprim 1 tab PO BID #20 tab 08/30/18 [Bactrim DS] sildenafil 100 mg PO DAILY PRN #30 tab 10/12/20 Allergies Allergy/AdvReac Type Severity Reaction Status Date / Time Penicillins Allergy Mild HEAD Verified 08/29/18 13:27 ITCH-FEELS LIKE LICE vancomycin Allergy Mild ITCH Verified 08/29/18 13:27 adhesive Allergy Unknown PAPER OK Verified 08/29/18 13:27 morphine AdvReac Mild DREAMS, Verified 08/29/18 13:27 COMBATIVE Review of Systems Review of Systems ROS Unobtainable: All systems reviewed & are unremarkable except as noted in HPI and below Patient History Medical History (Updated 10/12/20 @ 22:46 by Charmaine Gordon MD) ADHD Surgical History Multiple fractures Social History Smoking Status: Current every day smoker Smoking Status: Current every day smoker alcohol intake frequency: holidays/special occasions only Substance Use Type: marijuana Exam Narrative Exam Narrative: General: Mild distress complaining of light sensitivity and nausea Able to give a complete and coherent history. Well-nourished well-dev eloped HEENT: Moist mucous membranes, normal sclera with dilated pupils, Neck: No JVD, supple Respiratory: Lungs are clear to auscultation, no wheezing no rales no rhonchi. Full and symmetrical air movement Cardiac: Regular rate and rhythm no murmurs no bruits Abdomen: Soft nontender good bowel tones, no flank pain Skin: Mildly diaphoretic, no rashes Neurologic: Grossly neurologically intact with no obvious asymmetries or abnormalities Extremities: No trauma, well perfused Psych: Cooperative, appropriate insight and affect Initial Vital Signs Initial Vital Signs: Vital Signs Pulse Rate 87 10/12/20 19:49 Blood Pressure 199/106 H 10/12/20 19:49 Pulse Oximetry 98 10/12/20 19:49 Course Orders Ordered: Discontinued Medications Metoclopramide HCl (Metoclopramide Hcl 10 Mg Tablet) 10 mg PO NOW ONE Stop: 10/12/20 21:07 Last Admin: 10/12/20 21:23 Dose: 10 mg Documented by: SANTA Ondansetron HCl (Ondansetron 4 Mg Odt) 4 mg SL NOW ONE Stop: 10/12/20 19:57 Last Admin: 10/12/20 20:00 Dose: 4 mg Documented by: KERI Ondansetron HCl (Ondansetron 4 Mg Odt Prepack) 1 bottle MISC SEEINSTR ONE Stop: 10/12/20 22:47 Last Admin: 10/12/20 22:50 Dose: 1 bottle Documented by: Vital Signs Vital signs: Vital Signs - 8 hr 10/12/20 19:49 10/12/20 19:54 10/12/20 20:11 Temperature 98.9 F Pulse Rate 87 75 76 Respiratory Rate 24 32 H Blood Pressure 199/106 H 199/104 H Pulse Oximetry 98 100 10/12/20 20:16 10/12/20 20:30 10/12/20 21:00 Temperature Pulse Rate 74 77 76 Respiratory Rate 20 25 H 21 Blood Pressure 169/99 H 171/104 H 177/106 H Pulse Oximetry 99 99 98 10/12/20 21:30 10/12/20 22:00 Temperature Pulse Rate 76 92 H Respiratory Rate 19 18 Blood Pressure 189/95 H 164/107 H Pulse Oximetry 98 99 MDM - Allergic Reaction MDM Narrative Medical decision making narrative: 49-year-old gentleman after taking an herbal supplement is showing signs of sympathomimetic toxidrome. He notes that with energy drinks he has had similar reactions and tends to avoid these. After some Zofran for the nausea and observation, he is feeling significantly improved. Headache, visual disturbances, anxiety and nausea are all significantly improved. Heart rate has come down but blood pressure remains elevated. He is safe for home discharge at this time. We did discuss prescription sildenafil so that he does not need to use any [id number] medications with stimulants that clearly do not agree with him. Have also asked him to check his blood pressure tomorrow and the next day to make sure that is not significantly elevated. Will refer him to the [facility] to help him find a new physician as his previous 1 has retired He is safe for home discharge Discharge Plan Departure Patient Disposition: Home Clinical Impression: Adverse reaction to drug Qualifiers: Encounter type: initial encounter Qualified Code(s): T50.905A - Adverse effect of unspecified drugs, medicaments and biological substances, initial encounter Instructions: DI for Adverse Drug Reaction -- Other Activity Restrictions/Additional Instructions: Thank you for coming in today You clearly have had an adverse reaction to some of the ingredients in Rhino 6000. You need to avoid this as well as [id number] aids for erectile dysfunction or energy. As you have safely taken sildenafil in the past I have given you a prescription to be filled at a pharmacy Please use are health director of career resources at [phone] to help in finding a new primary care physician When sure feeling better, I would recommend that you check your blood pressure and make sure that it isn't significantly elevated. I wish you the best Prescriptions: New sildenafil 100 mg tablet 100 mg PO DAILY PRN (Reason: sexual activity) Qty: 30 RF: 0 No Action ibuprofen 800 mg tablet 800 mg PO Q8H PRN (Reason: pain/inflammation) Qty: 30 RF: 0 ondansetron 4 mg tablet,disintegrating 4 mg PO Q8-12H PRN (Reason: nausea and vomiting) Qty: 14 RF: 0 sulfamethoxazole-trimethoprim [Bactrim DS] 800-160 mg tablet 1 tab PO BID Qty: 20 RF: 0
--- NOTE | 2020-10-12 20:16 | PC.NURSE ---
Poison control contacted, reports no specific intervention recommended at this time, monitoring for resolution with time
[2020-10-12] MEDS: METOCLOPRAMIDE HCL 10 MG TABLET PO (21:23)
[2020-10-12] MEDS: ONDANSETRON 4 MG ODT PREPACK 1 BOTTLE MISC (22:50)
== END 2020-10-12 23:17 | disposition home or self-care (01) ==
PROVIDERS: Emergency Provider Emergency Medicine
DX: T78.40XA Allergy, unspecified, initial encounter (principal); T50.905A Adverse effect of unspecified drugs, medicaments and biological substances, initial encounter; F90.9 Attention-deficit hyperactivity disorder, unspecified type
CPT/HCPCS: 99281; 99283

== ENCOUNTER 2020-12-28 09:23 | Emergency (ER) | payer OTHER, MEDICAID, SELFPAY ==
[2020-12-28 09:40] VITALS: BP 173/104; PULSE 76; RESP 16; TEMP 36.3; O2SAT 100; BMI 25.9
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
[2020-12-28] MEDS: predniSONE 20 MG TABLET 40 MG PO (11:16)
[2020-12-28] MEDS: diphenhydrAMINE 25 MG TABLET 50 MG PO (11:16)
== END 2020-12-28 11:26 | disposition home or self-care (01) ==
PROVIDERS: Emergency Provider Emergency Medicine
DX: L30.9 Dermatitis, unspecified (principal)
CPT/HCPCS: 99281; 99283

== ENCOUNTER 2021-09-04 08:49 | Emergency (ER) | payer OTHER, MEDICAID, SELFPAY ==
[2021-09-04 09:07] VITALS: BP 129/74; PULSE 82; RESP 14; TEMP 36.8; O2SAT 99
--- NOTE | 2021-09-04 12:44 | ED_ITS ---
HPI - Skin/Abscess/Foreign Bdy General Chief complaint: Skin/Abscess/Foreign Body Stated complaint: Lump on head behind left ear Time Seen by Provider: 09/04/21 12:05 Source: patient Mode of arrival: Ambulatory Limitations: no limitations History of Present Illness HPI narrative: The patient has postauricular pain and swelling for about 4 days. He is wearing a mask with string spine the ears. He has no other trauma to the site. He has no drainage from the ears, or pain in the ears. He has no neck pain, rhinorrhea or sore throat. He has no chronic medical issues. There is no drainage from site. He has no fever chills. Related Data Previous Rx's Medication Instructions Recorded sulfamethoxazole 800 1 tab PO BID 7 Days #14 tab 09/04/21 mg-trimethoprim 160 mg tablet Allergies Allergy/AdvReac Type Severity Reaction Status Date / Time Penicillins Allergy Mild HEAD Verified 09/04/21 09:11 ITCH-FEELS LIKE LICE vancomycin Allergy Mild ITCH Verified 09/04/21 09:11 adhesive Allergy Unknown PAPER OK Verified 09/04/21 09:11 Review of Systems Review of Systems ROS Unobtainable: All systems reviewed & are unremarkable except as noted in HPI and below Patient History Medical History (Updated 09/04/21 @ 12:50 by Ilya Woods MD) ADHD Surgical History Multiple fractures Social History Smoking Status: Current every day smoker Smoking Status: Current every day smoker alcohol intake frequency: holidays/special occasions only Substance Use Type: marijuana Exam Initial Vital Signs Initial Vital Signs: Vital Signs Temperature 98.2 F 09/04/21 09:07 Pulse Rate 82 09/04/21 09:07 Respiratory Rate 14 09/04/21 09:07 Blood Pressure 129/74 09/04/21 09:07 Pulse Oximetry 99 09/04/21 09:07 Const General: cooperative, healthy appearing and comfortable [facility] Head: normocephalic, atraumatic and other (Erythema with warmth behind the left external ear.) Ears: external ears normal and TM's normal bilaterally Neck Neck: supple and No lymphadenopathy Course Course Course Narrative: The patient was given ibuprofen for pain. He was started on Septra DS for the left postauricular cellulitis. Vital Signs Vital signs: Vital Signs - 8 hr 09/04/21 09:07 Temperature 98.2 F Pulse Rate 82 Respiratory Rate 14 Blood Pressure 129/74 Pulse Oximetry 99 Discharge Plan Departure Patient Disposition: Home Clinical Impression: Cellulitis of postauricular region Instructions: DI for Cellulitis -- Adult Activity Restrictions/Additional Instructions: Septra DS 2 times daily for 7 days. The prescription has been electronically forwarded to [facility] in [place]. Advil as needed for pain. Avoid wearing face mass with drinks behind the ears. Return here if he of increased redness, or if you develop fever. Prescriptions: New sulfamethoxazole-trimethoprim 800-160 mg tablet 1 tab PO BID 7 Days Qty: 14 0RF
[2021-09-04] MEDS: TRIMETH/SULFA 160/800 (DS) TABLET 2 TAB PO (12:50)
[2021-09-04] MEDS: IBUPROFEN 400 MG TABLET 800 MG PO (12:51)
[2021-09-04 13:05] VITALS: BP 116/82; PULSE 83; RESP 16; O2SAT 98
== END 2021-09-04 13:08 | disposition home or self-care (01) ==
PROVIDERS: Emergency Provider Emergency Medicine
DX: H60.12 Cellulitis of left external ear (principal)
CPT/HCPCS: 99283

== ENCOUNTER 2021-10-21 06:09 | Emergency (ER) | payer OTHER, MEDICAID, SELFPAY ==
[2021-10-21 06:15] VITALS: BP 173/108; PULSE 68; RESP 20; TEMP 36.2; O2SAT 100; BMI 25.7
--- NOTE | 2021-10-21 06:20 | ED_ITS ---
HPI - General Adult <Iban Cobian DO - Last Filed: 10/24/21 18:07> General Chief complaint: Abdominal Pain Stated complaint: Rt side Abd pain & testicle pain Time Seen by Provider: 10/21/21 06:12 Source: patient Mode of arrival: EMS Limitations: no limitations History of Present Illness HPI narrative: Patient is a 50-year-old male. Approximately 24 hours ago he missed a couple steps while he was going down a staircase and landed on a banister on his right side. He did not hit his head. There was no loss of consciousness. Had discomfort in that right flank area afterwards. No other injuries from the event. Went about his day. Approximately 2 hours ago he woke up with pain on his right abdomen and right back that radiates down to his right testicle. He states this is a different discomfort than when he initially had when he fell. He did drink some alcohol to try to help with the discomfort without any improvement. No urinary symptoms. No shortness of breath. No chest pain. No change in bowel habits. He has never had a kidney stone in the past. Related Data Previous Rx's Medication Instructions Recorded hydrocodone 5 mg-acetaminophen 325 1 tab PO Q4-6H PRN #10 tab 10/21/21 mg tablet ketorolac 10 mg tablet 10 mg PO Q6H PRN #14 tab 10/21/21 tamsulosin 0.4 mg capsule (Flomax) 0.4 mg PO DAILY #20 cap 10/21/21 Allergies Allergy/AdvReac Type Severity Reaction Status Date / Time Penicillins Allergy Mild HEAD Verified 09/04/21 09:11 ITCH-FEELS LIKE LICE vancomycin Allergy Mild ITCH Verified 09/04/21 09:11 adhesive Allergy Unknown PAPER OK Verified 09/04/21 09:11 Review of Systems <Iban Cobian DO - Last Filed: 10/24/21 18:07> Constitutional Constitutional: Reports system reviewed and no additional complaints, except as documented Cardiovascular Cardiovascular: Reports as per HPI and Reports system reviewed and no additional complaints, except as documented Respiratory Respiratory: Reports as per HPI and Reports system reviewed and no additional complaints, except as documented Gastrointestinal Gastrointestinal: Reports as per HPI Genitourinary Genitourinary: Reports as per HPI Musculoskeletal Musculoskeletal: Reports as per HPI Integumentary/Breasts Skin/Breast: Reports system reviewed and no additional complaints, except as documented Hematologic/Lymphatic On Anticoagulants: No Patient History <DO Brigida Martinez Last Filed: 10/24/21 18:07> Medical History (Updated 10/21/21 @ 08:18 by Amrit Ng DO) ADHD Surgical History Multiple fractures Social History Smoking Status: Current every day smoker Smoking Status: Current every day smoker alcohol intake frequency: holidays/special occasions only Substance Use Type: marijuana Exam <DO Brigida Martinez Last Filed: 10/24/21 18:07> Initial Vital Signs Initial Vital Signs: Vital Signs Temperature 97.1 F L 10/21/21 06:15 Pulse Rate 68 10/21/21 06:15 Respiratory Rate 10/21/21 06:15 Blood Pressure 173/108 H 10/21/21 06:15 Pulse Oximetry 100 10/21/21 06:15 HENMT Head: normal to inspection Resp Effort & Inspection: normal respiratory effort Auscultation: clear to auscultation bilaterally Cardio Rate: regular rate Rhythm: regular rhythm GI Inspection: normal to inspection Palpation: soft, No firm, No guarding and tender (Right-sided abdomen) Back/Spine/Pelvis Back: No CVA tenderness Skin General: no rashes or lesions noted Neuro General: patient alert, patient awake and moves all extremities Extrem General: normal to inspection and capillary refill normal Psych Appearance: grossly normal <DO Brigida Newman Last Filed: 10/21/21 08:54> Initial Vital Signs Initial Vital Signs: Vital Signs Temperature 97.1 F L 10/21/21 06:15 Pulse Rate 68 10/21/21 06:15 Respiratory Rate 20 10/21/21 06:15 Blood Pressure 173/108 H 10/21/21 06:15 Pulse Oximetry 100 10/21/21 06:15 Course <DO Brigida Martinez Last Filed: 10/24/21 18:07> Orders Ordered: Discontinued Medications Sodium Chloride (Normal Saline 0.9%) 1,000 mls @ 1,000 mls/hr IV BOLUS ONE Stop: 10/21/21 07:19 Last Infusion: 10/21/21 08:33 Dose: 0 mls/hr Documented by: Admin: 10/21/21 06:56 Dose: 1,000 mls/hr Documented by: SUNSHINE Ketorolac Tromethamine (Ketorolac 30 Mg/Ml Vial) 15 mg IV NOW ONE Stop: 10/21/21 07:41 Last Admin: 10/21/21 07:49 Dose: 15 mg Documented by: VAZQUEZ Vital Signs Vital signs: Vital Signs - 8 hr 10/21/21 06:15 Temperature 97.1 F L Pulse Rate 68 Respiratory Rate 20 Blood Pressure 173/108 H Pulse Oximetry 100 <Amrit gN DO - Last Filed: 10/21/21 08:54> Orders Ordered: Discontinued Medications Sodium Chloride (Normal Saline 0.9%) 1,000 mls @ 1,000 mls/hr IV BOLUS ONE Stop: 10/21/21 07:19 Last Infusion: 10/21/21 08:33 Dose: 0 mls/hr Documented by: Admin: 10/21/21 06:56 Dose: 1,000 mls/hr Documented by: SUNSHINE Ketorolac Tromethamine (Ketorolac 30 Mg/Ml Vial) 15 mg IV NOW ONE Stop: 10/21/21 07:41 Last Admin: 10/21/21 07:49 Dose: 15 mg Documented by: VAZQUEZ Reevaluation(s) Reevaluation #1: Patient has a significant improvement in symptoms after Toradol. Vital Signs Vital signs: Vital Signs - 8 hr 10/21/21 06:15 Temperature 97.1 F L Pulse Rate 68 Respiratory Rate 20 Blood Pressure 173/108 H Pulse Oximetry 100 Medical Decision Making <Iban Cobian DO - Last Filed: 10/24/21 18:07> Lab Data Result diagrams: 10/21/21 06:20 10/21/21 06:20 Labs: Lab Results 10/21/21 10/21/21 10/21/21 Range/Units 06:20 06:20 08:25 WBC 5.2 (4.5-11.0) X10^3/uL RBC 4.65 (4.5-5.9) X10^6/uL Hgb 13.2 L (13.5-17.5) g/dL Hct 39.0 L (41-53) % MCV 83.9 (80-100) fL MCH 28.4 (26-34) PG MCHC 33.9 (30-36) % RDW 13.7 (11.6-14.8) % Plt Count 247 (150-400) X10^3/uL Neut % (Auto) 46.1 L (50-75) % Lymph % (Auto) 35.7 (25-40) % Swisher % (Auto) 13.6 (3-14) % Eos % (Auto) 3.6 (2-4) % Baso % (Auto) 1.0 (0-2) % Neut # (Auto) 2400 (1934-3134) /uL Lymph # (Auto) 1900 (7789-1012) /uL Swisher # (Auto) 700 (0-900) /uL Eos # (Auto) 200 (0-450) /uL Baso # (Auto) 100 (0-100) /uL Sodium 141 (137-145) mmol/L Potassium 3.9 (3.4-5.1) mmol/L Chloride 104 (98-107) mmol/L Carbon Dioxide 32 (22-32) mmol/L BUN 19 (9-20) mg/dL Creatinine 0.89 (0.66-1.25) mg/dL Estimated GFR > 60.0 (>60) mL/min BUN/Creatinine Ratio 21.3 (6-22) Glucose 105 H (70-100) mg/dL Calcium 9.3 (8.4-10.2) mg/dL Total Bilirubin 0.4 (0.2-1.3) mg/dL AST 40 (17-59) IU/L ALT 72 H (<50) IU/L Alkaline Phosphatase 65 (38-126) U/L Total Protein 7.8 (6.3-8.2) g/dL Albumin 4.3 (3.5-5.0) g/dL Globulin 3.5 (1.7-4.1) g/dL Albumin/Globulin Ratio 1.2 (1.0-2.8) Lipase 31 (23-300) U/L Urine RBC 5-10/hpf H (0-5/HPF) Urine WBC None seen (0-5/HPF) Urine Bacteria None seen (None) Ur Culture Indicated? Cult not indicated Urine Dip Bedside Urine Glucose Negative Bedside Urine Bilirubin - Negative Bedside Urine Ketone - Negative Urine Specific Shiloh 1.015 Bedside Urine Occult Blood +++ Bedside Urine pH 6.0 Bedside Urine Protein - Negative Bedside Urine Urobilinogen - Negative Bedside Urine Nitrite - Negative Bedside Urine Leukocytes - Negative Esterase Point of care testing: Urine Dip Bedside Urine Glucose Negative Bedside Urine Bilirubin - Negative Bedside Urine Ketone - Negative Urine Specific [place]il[place] 1.015 Bedside Urine Occult Blood +++ Bedside Urine pH 6.0 Bedside Urine Protein - Negative Bedside Urine Urobilinogen - Negative Bedside Urine Nitrite - Negative Bedside Urine Leukocytes - Negative Esterase MDM Narrative Medical decision making narrative: Patient does have right-sided abdominal discomfort. This is different than the pain that he had when he initially fell. Labs ordered. CT scan is ordered. Care turned over to Dr. Ng to follow up and disposition. <Amrit Ng DO - Last Filed: 10/21/21 08:54> Lab Data Labs: Lab Results 10/21/21 10/21/21 10/21/21 Range/Units 06:20 06:20 08:25 WBC 5.2 (4.5-11.0) X10^3/uL RBC 4.65 (4.5-5.9) X10^6/uL Hgb 13.2 L (13.5-17.5) g/dL Hct 39.0 L (41-53) % MCV 83.9 (80-100) fL MCH 28.4 (26-34) PG MCHC 33.9 (30-36) % RDW 13.7 (11.6-14.8) % Plt Count 247 (150-400) X10^3/uL Neut % (Auto) 46.1 L (50-75) % Lymph % (Auto) 35.7 (25-40) % Swisher % (Auto) 13.6 (3-14) % Eos % (Auto) 3.6 (2-4) % Baso % (Auto) 1.0 (0-2) % Neut # (Auto) 2400 (6379-2306) /uL Lymph # (Auto) 1900 (4051-5784) /uL Swisher # (Auto) 700 (0-900) /uL Eos # (Auto) 200 (0-450) /uL Baso # (Auto) 100 (0-100) /uL Sodium 141 (137-145) mmol/L Potassium 3.9 (3.4-5.1) mmol/L Chloride 104 (98-107) mmol/L Carbon Dioxide 32 (22-32) mmol/L BUN 19 (9-20) mg/dL Creatinine 0.89 (0.66-1.25) mg/dL Estimated GFR > 60.0 (>60) mL/min BUN/Creatinine Ratio 21.3 (6-22) Glucose 105 H (70-100) mg/dL Calcium 9.3 (8.4-10.2) mg/dL Total Bilirubin 0.4 (0.2-1.3) mg/dL AST 40 (17-59) IU/L ALT 72 H (<50) IU/L Alkaline Phosphatase 65 (38-126) U/L Total Protein 7.8 (6.3-8.2) g/dL Albumin 4.3 (3.5-5.0) g/dL Globulin 3.5 (1.7-4.1) g/dL Albumin/Globulin Ratio 1.2 (1.0-2.8) Lipase 31 (23-300) U/L Urine RBC 5-10/hpf H (0-5/HPF) Urine WBC None seen (0-5/HPF) Urine Bacteria None seen (None) Ur Culture Indicated? Cult not indicated Urine Dip Bedside Urine Glucose Negative Bedside Urine Bilirubin - Negative Bedside Urine Ketone - Negative Urine Specific Shiloh 1.015 Bedside Urine Occult Blood +++ Bedside Urine pH 6.0 Bedside Urine Protein - Negative Bedside Urine Urobilinogen - Negative Bedside Urine Nitrite - Negative Bedside Urine Leukocytes - Negative Esterase Point of care testing: Urine Dip Bedside Urine Glucose Negative Bedside Urine Bilirubin - Negative Bedside Urine Ketone - Negative Urine Specific Shil[place] 1.015 Bedside Urine Occult Blood +++ Bedside Urine pH 6.0 Bedside Urine Protein - Negative Bedside Urine Urobilinogen - Negative Bedside Urine Nitrite - Negative Bedside Urine Leukocytes - Negative Esterase Imaging Data CT scan - abdomen/pelvis: Radiologist's Impression: [address] [address] [address] Scan Report Signed Patient: Ankit Segal MR#: [id number] : 1970 Acct:[id number] Age/Sex: 50 / M Date of Service: 10/21/21 Loc: ED Accession Number: [id number] ?? Procedure: CT abdomen pelvis w con Ordering Provider: Iban Cobian D.O. PROCEDURE:? CT ABDOMEN PELVIS W CON ? INDICATIONS:? Right-sided abdominal/flank pain after fall ? TECHNIQUE:? After the administration of intravenous contrast, axial sections acquired from the lung bases to the pubic symphysis.? Coronal and sagittal reformats were performed.? For radiation dose reduction, the following was used:? automated exposure control, adjustment of mA and/or kV according to patient size.? ? COMPARISON:? None. ? FINDINGS:? Image quality:? Excellent.? ? Lung bases:? Unremarkable. Heart:? No significant findings. ? ABDOMEN: Liver:? Anterior-inferior subsegment of the right lobe of the liver which may represent flash filling of a hemangioma. Gallbladder:? Unremarkable.? ? Biliary ducts:? Unremarkable.? ? Pancreas:? Unremarkable.? ? Spleen:? Unremarkable.? ? Adrenal Glands:? Unremarkable.? ? Kidneys and Ureters:? 3 millimeter stone noted in the right UVJ which is causing mild right-sided hydroureteronephrosis.? There is trace right perinephric fluid and minimal right perinephric stranding which could be related to obstruction versus superimposed urinary tract infection.? 4 millimeter nonobstructing left renal cortical stone noted. ? Stomach and Bowel:? Stomach, small bowel loops, and colon are unremarkable.? The appendix is normal.? Peritoneum:? No abnormal intraperitoneal fluid.? No free air.? ? Ventral Wall: ? No hernias.? Abdominal Nodes:? No retroperitoneal or mesenteric adenopathy by size criteria.? Vessels:? Aorta and inferior vena cava are normal in size.? ? PELVIS: Pelvic Organs:? Unremarkable.? ? Bladder:? Unremarkable.? ? Pelvic Nodes: No enlarged lymph nodes.? Miscellaneous: No hernias are seen. ? ? ? Bones:? Spine degenerative disc disease and facet arthropathy. ? ? IMPRESSION:? ? 1. 3 millimeter right UVJ stone causing mild right-sided hydroureteronephrosis. ? 2. Minimal right perinephric stranding and trace right perinephric fluid which may be related to hydronephrosis, however superimposed urinary tract infection cannot be excluded by imaging alone.? Recommend correlation with urinalysis data. ? 3. 4 millimeter nonobstructing left renal stone.? Hannah a 4. No acute traumatic injury.? ? ? Dictated by: Mylene Camp MD, PhD on 10/21/2021 at 8:00 ? ? Approved by: Mylene Camp MD, PhD on 10/21/2021 at 8:05 ? [facility] Narrative Medical decision making narrative: Patient does have right-sided abdominal discomfort. This is different than the pain that he had when he initially fell. Labs ordered. CT scan is ordered. Care turned over to Dr. Ng to follow up and disposition. 0700 - (PHUC): Patient received in sign-out from Dr. Cobian. I have performed an independent history and physical exam. Pain medications ordered, imaging pending Patient's history, physical exam, labs and imaging are reassuring. His pain is very well controlled with above-stated therapies, he is tolerating orals without difficulty. CT shows a 3 mm stone and no traumatic sequela from his fall. Labs are reassuring and there is no evidence of infection, renal failure, or UTI. Patient given return precautions and questions answered to his apparent satisfaction Discharge Plan Departure Patient Disposition: Home Clinical Impression: Calculus of kidney Instructions: DI for Kidney Stones Activity Restrictions/Additional Instructions: *You have been diagnosed with [right sided kidney stone ] *What to do: *Please continue to take your regular medications as directed. [ x] New medication prescriptions sent to your pharmacy: [[facility] ] [ ] New medication written as a paper prescription [ ] No new medications given *Please follow up with your primary care provider in 2-3 days, call for an appointment. Let them know you were seen in the Emergency Department and that we ask that you be seen in follow up. We will electronically transmit a record of today's note if your PCP is in our system *If you do not have a primary care provider please contact the [facility] Resource line at [phone]. They will ask some questions about your medical history and help get you set up with a doctor in the community. *Return to Emergency Department if you should have any new, worsening or concerning symptoms, such as [fever greater than 101 F, shaking chills, worsening pain, persistent vomiting or other bothersome symptoms] Prescriptions: New hydrocodone-acetaminophen 5-325 mg tablet 1 tab PO Q4-6H PRN (Reason: pain) Qty: 10 0RF ketorolac 10 mg tablet 10 mg PO Q6H PRN (Reason: pain) Qty: 14 0RF tamsulosin [Flomax] 0.4 mg capsule 0.4 mg PO DAILY Qty: 20 0RF Referrals: Nelson Minor MD [Physician] -
--- NOTE | 2021-10-21 06:21 | DI.CT.S_ITS ---
PROCEDURE: CT ABDOMEN PELVIS W CON INDICATIONS: Right-sided abdominal/flank pain after fall TECHNIQUE: After the administration of intravenous contrast, axial sections acquired from the lung bases to the pubic symphysis. Coronal and sagittal reformats were performed. For radiation dose reduction, the following was used: automated exposure control, adjustment of mA and/or kV according to patient size. COMPARISON: None. FINDINGS: Image quality: Excellent. Lung bases: Unremarkable. Heart: No significant findings. ABDOMEN: Liver: Anterior-inferior subsegment of the right lobe of the liver which may represent flash filling of a hemangioma. Gallbladder: Unremarkable. Biliary ducts: Unremarkable. Pancreas: Unremarkable. Spleen: Unremarkable. Adrenal Glands: Unremarkable. Kidneys and Ureters: 3 millimeter stone noted in the right UVJ which is causing mild right-sided hydroureteronephrosis. There is trace right perinephric fluid and minimal right perinephric stranding which could be related to obstruction versus superimposed urinary tract infection. 4 millimeter nonobstructing left renal cortical stone noted. Stomach and Bowel: Stomach, small bowel loops, and colon are unremarkable. The appendix is normal. Peritoneum: No abnormal intraperitoneal fluid. No free air. Ventral Wall: No hernias. Abdominal Nodes: No retroperitoneal or mesenteric adenopathy by size criteria. Vessels: Aorta and inferior vena cava are normal in size. PELVIS: Pelvic Organs: Unremarkable. Bladder: Unremarkable. Pelvic Nodes: No enlarged lymph nodes. Miscellaneous: No hernias are seen. Bones: Spine degenerative disc disease and facet arthropathy. IMPRESSION: 1. 3 millimeter right UVJ stone causing mild right-sided hydroureteronephrosis. 2. Minimal right perinephric stranding and trace right perinephric fluid which may be related to hydronephrosis, however superimposed urinary tract infection cannot be excluded by imaging alone. Recommend correlation with urinalysis data. 3. 4 millimeter nonobstructing left renal stone. Hannah a 4. No acute traumatic injury. Dictated by: Mylene Camp MD, PhD on 10/21/2021 at 8:00 Approved by: Mylene Camp MD, PhD on 10/21/2021 at 8:05
[2021-10-21 06:37] LABS: Add Manual Diff / Slide Review NO; Basophils Absolute Auto 100 /uL (0-100); Eosinophils Absolute Auto 200 /uL (0-450); Eosinophils Percent Auto 3.6 % (2-4); Hemoglobin 13.2 g/dL (13.5-17.5); Lymphocytes Absolute Auto 1900 /uL (1100-4500); Lymphocytes Percent Auto 35.7 % (25-40); Mean Corpuscular HGB Conc 33.9 % (30-36); Mean Corpuscular Hemoglobin 28.4 PG (26-34); Mean Corpuscular Volume 83.9 fL (80-100); Monocytes Absolute Auto 700 /uL (0-900); Monocytes Percent Auto 13.6 % (3-14); Neutrophils Absolute Auto 2400 /uL (1500-7000); Neutrophils Percent Auto 46.1 % (50-75); Platelet Count 247 X10^3/uL (150-400); Red Blood Cell Count 4.65 X10^6/uL (4.5-5.9); Red Cell Distribution Width 13.7 % (11.6-14.8); White Blood Cell Count 5.2 X10^3/uL (4.5-11.0)
[2021-10-21 06:47] LABS: Alanine Aminotransferase 72 IU/L (<50); Albumin 4.3 g/dL (3.5-5.0); Albumin Globulin Ratio 1.2 (1.0-2.8); Alkaline Phosphatase 65 U/L (38-126); Aspartate Aminotransferase 40 IU/L (17-59); BUN Creatinine Ratio 21.3 (6-22); Bilirubin Total 0.4 mg/dL (0.2-1.3); Blood Urea Nitrogen 19 mg/dL (9-20); Calcium 9.3 mg/dL (8.4-10.2); Carbon Dioxide 32 mmol/L (22-32); Chloride 104 mmol/L (98-107); Estimated Glomerular Filt Rate > 60.0 mL/min (>60); Globulin 3.5 g/dL (1.7-4.1); Glucose 105 mg/dL (70-100); HEMOLYSIS < 15 (0-50); Lipase 31 U/L (23-300); Potassium 3.9 mmol/L (3.4-5.1); Sodium 141 mmol/L (137-145); Total Protein 7.8 g/dL (6.3-8.2)
[2021-10-21] MEDS: SODIUM CHLORIDE 0.9% 1,000 ML 1000 ML IV (06:56)
[2021-10-21] MEDS: KETOROLAC 30 MG/ML VIAL 15 MG IV (07:49)
[2021-10-21 08:50] LABS: Bacteria Urine None Seen; Culture Indicated Urine Cult Not Indicated; RBC Urine 5-10/HPF (0-5/HPF); WBC Urine None Seen (0-5/HPF)
[2021-10-21 09:05] VITALS: BP 149/90; PULSE 76; RESP 16; O2SAT 99
== END 2021-10-21 09:07 | disposition home or self-care (01) ==
PROVIDERS: Emergency Medicine; Emergency Provider Emergency Medicine
DX: N20.0 Calculus of kidney (principal)
CPT/HCPCS: 36415; 74177; 80053; 81003; 81015; 83690; 85025; 96361; 96374; 99284; J1885

== ENCOUNTER 2023-01-13 10:19 | Emergency (ER) | payer OTHER, MEDICAID, SELFPAY ==
[2023-01-13 10:35] VITALS: BP 181/107; PULSE 86; O2SAT 96
[2023-01-13 10:36] VITALS: BP 175/110; PULSE 84; RESP 22; TEMP 36.6; O2SAT 100
[2023-01-13 10:45] VITALS: BP 153/91; PULSE 90; O2SAT 97
--- NOTE | 2023-01-13 10:56 | ED.ANIMALBIT ---
HPI - Animal Bite General Chief Complaint: Animal Bite Stated Complaint: bug bite on left thigh, pain Time Seen by Provider: 01/13/23 10:54 Source: patient Mode of arrival: Family Vehicle History of Present Illness HPI narrative: Patient is a healthy 52-year-old male who presents with spider bite on left inner part of his thigh. He reports he was working on a deck yesterday he felt something and today he woke up is definitely more red. No fevers or chills. No significant swelling or drainage. Related Data Previous Rx's Medication Instructions Recorded hydrocodone 5 mg-acetaminophen 325 1 tab PO Q4-6H PRN pain #10 tabs 10/21/21 mg tablet ketorolac 10 mg tablet 10 mg PO Q6H PRN pain #14 tabs 10/21/21 tamsulosin 0.4 mg capsule (Flomax) 0.4 mg PO DAILY #20 caps 10/21/21 sulfamethoxazole 800 1 tab PO BID 7 days #14 tabs 01/13/23 mg-trimethoprim 160 mg tablet (Bactrim DS) Allergies Allergy/AdvReac Type Severity Reaction Status Date / Time Penicillins Allergy Mild HEAD Verified 09/04/21 09:11 ITCH-FEELS LIKE LICE vancomycin Allergy Mild ITCH Verified 09/04/21 09:11 adhesive Allergy Unknown PAPER OK Verified 09/04/21 09:11 Review of Systems Review of Systems ROS Unobtainable: All systems reviewed & are unremarkable except as noted in HPI and below Patient History Medical History (Updated 01/13/23 @ 11:01 by Khadijah Lara DO) ADHD Surgical History Multiple fractures Social History Smoking Status: Current every day smoker Smoking Status: Current every day smoker alcohol intake frequency: a few times a week Substance Use Type: marijuana Exam Initial Vital Signs Initial Vital Signs: Vital Signs Pulse Rate 86 01/13/23 10:35 Blood Pressure 181/107 H 01/13/23 10:35 Pulse Oximetry 96 01/13/23 10:35 GENERAL: Alert well-appearing 52-year-old male CARDIOVASCULAR: peripheral pulses in tact, cap refill <2 sec RESPIRATORY: No respiratory distress, speaks in full sentences without difficulty EXTREMITIES: Normal range of motion, no clubbing or edema. Neurovascularly intact NEUROLOGICAL: Cranial nerves II through XII grossly intact. Normal gait and speech. SKIN: Erythema left inner thigh 6 cm x 5 cm no induration no fluctuation no drainage center is scabbed over Course Vital Signs Vital signs: Vital Signs - 8 hr 01/13/23 10:36 01/13/23 10:35 01/13/23 10:35 Temperature 97.9 F Pulse Rate 84 86 Respiratory Rate 22 Blood Pressure 175/110 H 181/107 H Pulse Oximetry 100 96 Oxygen Delivery Method Room Air MDM - Animal Bite MDM Narrative Medical decision making narrative: Patient is a healthy 52-year-old male who has small non of erythema on his left thigh possibly from a spider bite no abscess or fluctuation noted at this time. Will start him on a course of antibiotics. There is no evidence of allergic reaction, sepsis, necrotizing fasciitis, or other severe infection this time. Discharge Plan Departure Patient Disposition: Home Clinical Impression: Cellulitis, Insect bite Instructions: DI for Cellulitis -- Adult, DI for Spider Bites Activity Restrictions/Additional Instructions: *You have been diagnosed with cellulitis, spider *What to do: At this time try warm compresses please monitor the redness. *Continue to take medications as directed Septra 1 tablet twice a day for 7 days --> SENT TO [facility] *Follow up with your primary care provider in 2-3 days or call [phone] *Return to ER if you should have increasing pain redness swelling drainage or any new, worsening or concerning symptoms Prescriptions: New sulfamethoxazole-trimethoprim [Bactrim DS] 800-160 mg tablet 1 tab PO BID 7 Days Qty: 14 0RF No Action hydrocodone-acetaminophen 5-325 mg tablet 1 tab PO Q4-6H PRN (Reason: pain) Qty: 10 0RF ketorolac 10 mg tablet 10 mg PO Q6H PRN (Reason: pain) Qty: 14 0RF tamsulosin [Flomax] 0.4 mg capsule 0.4 mg PO DAILY Qty: 20 0RF Referrals: Miscellaneous,Doctor, MD [Primary Care Provider] - Stand Alone Forms: Patient Portal/API
== END 2023-01-13 11:09 | disposition home or self-care (01) ==
PROVIDERS: Emergency Provider Emergency Medicine
DX: L03.116 Cellulitis of left lower limb (principal); W57.XXXA Bitten or stung by nonvenomous insect and other nonvenomous arthropods, initial encounter
CPT/HCPCS: 99281

== ENCOUNTER 2023-08-15 13:10 | Emergency (ER) | payer OTHER, MEDICAID, SELFPAY ==
[2023-08-15 13:21] VITALS: BP 166/110; PULSE 97; RESP 17; TEMP 36.6; O2SAT 100; BMI 30.1
--- NOTE | 2023-08-15 15:21 | ED.SKABFB ---
HPI - Skin/Abscess/Foreign Bdy <Mildred Ruby PA-C - Last Filed: 08/15/23 16:58> General Chief complaint: Skin/Abscess/Foreign Body Stated complaint: bites on LT arm/RT wrist Time Seen by Provider: 08/15/23 15:21 Source: patient Mode of arrival: Ambulatory History of Present Illness HPI narrative: 52-year-old male with no reported past medical history presents to the ED with 4 days of generalized, itchy rash. [facility], after the 1st night noted an itchy rash to the left inner forearm. The next day patient found that the rash was also present on the dorsal aspect of the right hand and eventually spread to the trunk. Patient endorses that the rash is itchy. Patient denies any lip swelling, tongue swelling, throat tightening, shortness of breath, chest pain. Related Data Previous Rx's Medication Instructions Recorded hydrocodone 5 mg-acetaminophen 325 1 tab PO Q4-6H PRN pain #10 tabs 10/21/21 mg tablet ketorolac 10 mg tablet 10 mg PO Q6H PRN pain #14 tabs 10/21/21 tamsulosin 0.4 mg capsule (Flomax) 0.4 mg PO DAILY #20 caps 10/21/21 permethrin 5 % topical cream 4 applic topical Q14D 24 doses #60 08/15/23 grams prednisone 5 mg tablets in a dose See Rx Instructions PO .COMPLEX 08/15/23 pack #21 ea Allergies Allergy/AdvReac Type Severity Reaction Status Date / Time Penicillins Allergy Mild HEAD Verified 08/15/23 13:23 ITCH-FEELS LIKE LICE vancomycin Allergy Mild ITCH Verified 08/15/23 13:23 adhesive Allergy Unknown PAPER OK Verified 08/15/23 13:23 Review of Systems <Mildred Ruby PA-C - Last Filed: 08/15/23 16:58> Constitutional Constitutional: Denies chills, Denies fatigue, Denies fever(s), Denies frequent falls, Denies lethargy and Denies weakness Eyes Eyes: Denies change in vision, Denies eye discharge, Denies irritation and Denies loss of vision ENT Ears, Nose, Mouth, and Throat: Denies change in voice, Denies dizziness, Denies neck pain, Denies sore throat and Denies throat swelling Cardiovascular Cardiovascular: Denies chest pain, Denies irregular heart rhythm, Denies lightheadedness, Denies palpitations, Denies dyspnea, Denies dyspnea on exertion and Denies orthopnea Respiratory Respiratory: Denies cough, Denies dyspnea, Denies dyspnea on exertion and Denies wheezing Gastrointestinal Gastrointestinal: Denies abdominal pain, Denies change in bowel habits, Denies diarrhea, Denies nausea and Denies vomiting Musculoskeletal Musculoskeletal: Denies neck pain and Denies numbness Integumentary/Breasts Skin/Breast: Reports pruritus, Denies erythema, Reports rash and Denies wounds Neurologic Neurologic: Denies behavioral changes, Denies confusion, Denies dizziness, Denies frequent falls, Denies loss of vision, Denies numbness and Denies weakness Psychiatric Psychiatric: Denies anxiety, Denies behavioral changes, Denies confusion, Denies depression, Denies homicidal ideation and Denies suicidal ideation Endocrine Endocrine: Denies fatigue, Denies flushing and Denies palpitations Hematologic/Lymphatic Hematologic/Lymphatic: Denies easy bruising Allergic/Immunologic Allergic/Immunologic: Denies urticaria, Denies throat swelling and Denies wheezing Patient History <Mildred Ruby PA-C - Last Filed: 08/15/23 16:58> Medical History ADHD Surgical History Multiple fractures Social History Smoking Status: Current every day smoker Smoking Status: Current every day smoker alcohol intake frequency: a few times a week Substance Use Type: marijuana Exam <Mildred Ruby PA-C - Last Filed: 08/15/23 16:58> Narrative Exam Narrative: Const General:?cooperative, healthy appearing and comfortable [facility] Head:?normal to inspection Ears:?hearing grossly normal bilaterally Nose:?external nose normal Face and sinus:?normal facial exam and sinuses nontender Mouth:?oral mucosae normal Throat:?posterior oropharynx normal Eyes General:?appearance normal, both eyes and all related structures Neck Neck:?normal visual inspection and no lymphadenopathy noted Resp Effort & Inspection:?normal respiratory effort Auscultation:?clear to auscultation bilaterally Cardio Rate:?regular rate Rhythm:?regular rhythm Integumentary Erythematous, discrete, papular rash visualized on hands, arms, trunk. No signs of superimposed bacterial infection. Neuro General:?patient alert, patient awake and patient oriented x3 Initial Vital Signs Initial Vital Signs: Vital Signs Temperature 98 F 08/15/23 13:21 Pulse Rate 97 H 08/15/23 13:21 Respiratory Rate 17 08/15/23 13:21 Blood Pressure 166/110 H 08/15/23 13:21 Pulse Oximetry 100 08/15/23 13:21 Oxygen Delivery Method Room Air 08/15/23 13:21 <Doris Hinojosa MD - Last Filed: 08/15/23 16:59> Initial Vital Signs Initial Vital Signs: Vital Signs Temperature 98 F 08/15/23 13:21 Pulse Rate 97 H 08/15/23 13:21 Respiratory Rate 17 08/15/23 13:21 Blood Pressure 166/110 H 08/15/23 13:21 Pulse Oximetry 100 08/15/23 13:21 Oxygen Delivery Method Room Air 08/15/23 13:21 Course <Mildred Ruby PA-C - Last Filed: 08/15/23 16:58> Vital Signs Vital signs: Vital Signs - 8 hr 08/15/23 13:21 Temperature 98 F Pulse Rate 97 H Respiratory Rate 17 Blood Pressure 166/110 H Pulse Oximetry 100 Oxygen Delivery Method Room Air <Doris Hinojosa MD - Last Filed: 08/15/23 16:59> Vital Signs Vital signs: Vital Signs - 8 hr 08/15/23 13:21 Temperature 98 F Pulse Rate 97 H Respiratory Rate 17 Blood Pressure 166/110 H Pulse Oximetry 100 Oxygen Delivery Method Room Air MDM - Skin/Abscess/Foreign Bdy <Mildred Ruby PA-C - Last Filed: 08/15/23 16:58> MDM Narrative Medical decision making narrative: 52-year-old male with no reported past medical history presents to the ED with 4 days of generalized, itchy rash. Concern for bed bug bites versus scabies versus other allergic reaction versus other. Will prescribe permethrin, prednisone. Recommend taking Benadryl per package instructions. Recommend follow-up with PCP. ED return precautions discussed with patient. Patient verbalized understanding. Medical records reviewed: Yes Discharge Plan Departure Patient Disposition: Home Clinical Impression: Rash Instructions: DI for Scabies, How to Get Rid of Bed Bugs Activity Restrictions/Additional Instructions: You were evaluated in the ED today for a skin rash. Based on history and physical exam, your symptoms are most likely either due to bedbugs or scabies. You are being prescribed steroids which will help with the rash and itching. You may also take Benadryl per package directions for the itching. You may use the permethrin cream as prescribed for scabies. You may repeat the treatment 14 days after the 1st treatment if symptoms still persist. Please follow-up with your PCP as soon as possible. Return to the ED if you have worsening symptoms, shortness of breath, throat tightness, lip swelling. Prescriptions: New permethrin 5 % cream 4 applic topical Q14D Qty: 60 0RF Rx Instructions: apply second treatment 14 days after first treatment if live lice remain prednisone 5 mg tablets,dose pack See Rx Instructions .ROUTE .COMPLEX Qty: 21 0RF Rx Instructions: orally per package directions No Action hydrocodone-acetaminophen 5-325 mg tablet 1 tab PO Q4-6H PRN (Reason: pain) Qty: 10 0RF ketorolac 10 mg tablet 10 mg PO Q6H PRN (Reason: pain) Qty: 14 0RF tamsulosin [Flomax] 0.4 mg capsule 0.4 mg PO DAILY Qty: 20 0RF Referrals: Miscellaneous,Doctor, MD [Primary Care Provider] - Stand Alone Forms: Patient Portal/API ED Sign-out <Doris Hinojosa MD - Last Filed: 08/15/23 16:59> Cosign ED Attending Isacature Attestation: I DID NOT SEE THIS PATIENT. I WAS AVAILABLE ALL TIMES FOR CONSULTATION.
[2023-08-15 18:15] VITALS: BP 148/88; PULSE 78; RESP 16; TEMP 36.8; O2SAT 98
== END 2023-08-15 16:30 | disposition home or self-care (01) ==
PROVIDERS: Emergency Provider Student in an Organized Health Care Education/Training Program
DX: R21 Rash and other nonspecific skin eruption (principal)
CPT/HCPCS: 99281; 99283